=== PATIENT | male | born 1960 | race Caucasian/White ===

== ENCOUNTER 2024-02-19 23:37 | Emergency (ER) | payer SELFPAY ==
[2024-02-20 00:03] VITALS: BP 123/70; PULSE 69; RESP 14; TEMP 36.7; O2SAT 99; BMI 33.7
[2024-02-20] MEDS: Acetaminophen 325 MG TABLET 650 MG PO (04:42)
[2024-02-20 04:44] VITALS: BP 117/77; PULSE 69; RESP 16; TEMP 36.7; O2SAT 99
--- NOTE | 2024-02-20 06:05 | PC.NURSE ---
Pt expresses concerns with low blood sugars as pt has not eaten in a few hours. POC 89. Pt provided with sandwich and drink.
[2024-02-20 06:10] LABS: Glucose, Whole Blood 89 mg/dL (60-115)
--- NOTE | 2024-02-20 08:18 | ED_ITS ---
HPI - Dental/Oral General Chief complaint: Dental/Oral Stated complaint: tooth pain Time Seen by Provider: 02/20/24 08:07 Source: patient Mode of arrival: ambulatory History of Present Illness ED Provider: Dr Zabaal HPI Narrative: 63-year-old male who presents, stating he broke his tooth 2 days ago on the lower left back molar. Patient states that he may be traveling to [place] to get the tooth evaluated and fixed by his oral surgeon. He is requesting clindamycin and Percocet Related Data Previous Rx's ?Medication ?Instructions ?Recorded clindamycin HCl 300 mg capsule 300 mg PO Q6H 5 days #20 caps 02/20/24 Allergies Allergy/AdvReac Type Severity Reaction Status Date / Time ibuprofen Allergy Unknown Verified 02/20/24 00:05 ketorolac [From Toradol] Allergy Rash Verified 02/20/24 00:05 Penicillins [PCN] Allergy Vomiting Verified 02/20/24 00:05 Review of Systems Review of Systems: Pertinent positives and negatives as stated in HPI [facility] Past Medical History Source: nursing notes reviewed Social History Social History Advance Directives: No Advance Directives Information Provided: No Do you have a plan to hurt others: No Plan Physical Exam Vital Signs: Vital Signs: Last Vital Signs Temp 98.0 F 02/20/24 04:44 Pulse 69 02/20/24 04:44 Resp 16 02/20/24 04:44 BP 117/77 02/20/24 04:44 Pulse Ox 99 02/20/24 04:44 O2 Del Method Room Air 02/20/24 04:44 BMI result Body Mass Index 33.7 VITAL SIGNS: Reviewed. GENERAL: Well developed, well nourished, in no acute distress. HEAD: Normocephalic/atraumatic EYES: PERRLA, EOMI EARS: Ext canals without abnormality NOSE: Nares patent bilateral OROPHARYNX: no oral lesions noted, posterior pharynx clear, missing lateral molar without gingival edema, no purulence drainage, does not appear to have happened recently NECK: Supple, no adenopathy LUNGS: Normal breath sounds. No adventitious sounds or accessory muscle use. SpO2<99> CARDIOVASCULAR: Regular rate and rhythm without noted murmurs ABDOMEN: Soft, non-tender, non-distended with bowel sounds. MUSCULOSKELETAL: No tenderness, deformities, or effusions noted on gross inspection. EXTREMITIES: No cyanosis, clubbing or edema. SKIN: Inspection of the skin reveals no rashes NEUROLOGIC: Alert and oriented x 4. Strength and sensation to light touch were grossly intact x 4. Medications Administered Discontinued Medications Generic Name Dose Route Start Last Admin Trade Name Kacy PRN Reason Stop Dose Admin Acetaminophen 650 mg 02/20/24 04:39 02/20/24 04:42 Acetaminophen 325 Mg Tablet PO 02/20/24 04:40 650 mg ONCE ONE Administration Medical Decision Making Medical Decision Making MDM Narrative: Plan to provide dental block and initiate clindamycin and instructions for [id number] Anbesol. Patient was very displeased about not receiving a prescription for Percocet. Patient eloped. Differential Diagnosis Differential Diagnoses: The differential diagnosis associated with the presentation includes Please see the discussion above Admission/Observation Consideration of admission/observation: Escalation of care including admission/observation considered Please see the discussion above Lab Data Labs: Lab Results 02/20/24 Range/Units 06:04 POC Glucose 89 (60-115) mg/dL Discharge Plan Discharge Clinical Impression: Toothache Patient Disposition: Elopement Instructions: Toothache (ED) Additional Instructions: 1. Please complete the course of antibiotics as prescribed. Recommend [id number] Anbesol and Tylenol. 2. Follow-up with your dental contact at your earliest convenience, if your unable to reach out a referral has been provided to you below. [facility] [address] [place] [address] [facility] [address] [place] [address] Prescriptions: New clindamycin HCl 300 mg capsule 300 mg PO Q6H 5 Days Qty: 20 0RF Discharge Date/Time: 02/20/24 08:44 Print Language: Italian
--- NOTE | 2024-02-20 08:38 | PC.NURSE ---
PT REFUSED MEDICATIONS. HE WAS NOT HAPPY WITH THE COURSE OF TREATMENT ORDER BY THE PHYSICIAN AND HAS DECIDED TO LEAVE WITH OUT DENTAL BLOCK/ANTIBIOTICS
== END 2024-02-20 08:44 | disposition left against medical advice (07) ==
PROVIDERS: Emergency Provider Student in an Organized Health Care Education/Training Program
DX: K08.89 Other specified disorders of teeth and supporting structures (principal)
CPT/HCPCS: 82947; 99283